=== PATIENT | male | born 1935 | race Caucasian/White ===

== ENCOUNTER 2016-11-08 12:05 | Inpatient (IN) | payer MEDICARE, OTHER ==
[~2016-11-08] VITALS: Ht 165.1 cm; Wt 99.1 kg
--- NOTE | ~2016-11-08 | NDGEN ---
PATIENT'S NAME: EDUARDO BARNES [facility] AGE: 81 Y [address] ROOM: [place] [address] LOCATION: [facility] ADMIT DATE: 11/08/2016 Neurodiagnostics DISCHARGE DATE: FAMILY PHYSICIAN: Topher Hughes MD ATTENDING PHYSICIAN: Leslie Dean PROCEDURE: ELECTROENCEPHALOGRAM DATE OF PROCEDURE: 11/23/2016 TEST: TECH: CLINICAL DIAGNOSIS: DURATION OF EE minutes. REASON FOR EEG: Hemorrhagic stroke. CLINICAL HISTORY: The patient is an 81-year-old male, who has been having some mental status changes after he was noted to have a right-sided intracranial hemorrhage and weakness of the left side. He also has complicated hospital course as he had pulmonary issues. He remains to be confused. EEG FINDINGS: The patient is awake for majority of the EEG. EEG shows the background of 8-9 hertz, which is symmetrical, rhythmical, waxing and waning. Activation procedures included photic stimulation between 3-30 hertz, which did not show any abnormalities. CLASSIFICATION: Normal awake 10/20 scalp electrodes. IMPRESSION: This EEG is mostly within normal limits. No epileptiform discharges or EEG seizures were seen during this recording. MD MONICA SHARMA/randa /[id number] dtt: 12/01/16 GUCCI [place] RAM MOHAN R. dtd: 11/24/16 0204
--- NOTE | ~2016-11-08 | CON ---
PATIENT'S NAME: EDUARDO BARNES [facility] AGE: 81 Y [address] ROOM: [place] [address] LOCATION: [facility] ADMIT DATE: 11/08/2016 Consultation DISCHARGE DATE: FAMILY PHYSICIAN: Topher Hughes MD ATTENDING PHYSICIAN: Leslie Dean REFERRING PHYSICIAN: LOLI KURTZ MD Consult for Dr. Dean. This 81-year-old gentleman is referred for rehab evaluation, GIRP, possible admission and was admitted on 11/08/2016 with left-sided weakness of sudden onset and was unable to get out of his car when he tried to park the car and get to restaurant after jehovah's witness service. He was brought to [facility] by the unit and evaluated. CT scan showed a right-sided intracranial hemorrhage, deemed not a surgical candidate. He has weakness of the left upper and lower extremity with marked slurring and marked weakness of the left facial muscles at the present time, with left- sided visual cut neglect. At the present time, he is with IV line and is also with a Jones catheter. PAST MEDICAL HISTORY: Past history of significance as follows: 1. Atrial fibrillation. 2. Hypertension. 3. Sleep apnea. 4. Benign prostatic hyperplasia. 5. Moderately obese. He is at the present time, alert, fairly well oriented, but unable to show good ability to communicate especially with his inability to wrap his lips to be able to pronounce words secondary to marked weakness of the left side. He has weakness of the left side of the tongue. (He is at the present time with a Dobhoff, which I agree with at risk of aspiration). He is not attending to the left side also. VITAL SIGNS: Blood pressure 119/68, temperature 97.3, pulse 69, respirations 20. He is 5 feet 5 inches tall, and weighs 108.1 kg. He cannot really show any volitional movement on the left side; however, he PATIENT'S NAME: EDUARDO BARNES [facility] AGE: 81 Y [address] ROOM: [place] [address] LOCATION: [facility]U ADMIT DATE: 11/08/2016 Consultation DISCHARGE DATE: FAMILY PHYSICIAN: Topher Hughes MD ATTENDING PHYSICIAN: Leslie Dean Nhan can withdraw very little with the left lower extremity upon pinprick or painful stimulation. He is on the following medications; 1. Lopressor. 2. Catapres. 3. NaCl 0.9%. 4. Apresoline. 5. Atrovent. 6. Zenapax. 7. Prevacid. 8. Norvasc. 9. Cozaar. 10. Sanctura. 11. B and O suppository. 12. Tylenol. 13. Zofran. 14. Morphine sulfate. 15. Deltasone. 16. Dextrose 5%. 17. Zosyn. 18. Citroma. 19. Dulcolax suppository. 20. Prednisone. 21. Lasix. He has been initiated on PT, OT, and speech which I will continue. He needs also to do incentive spirometer, please see the orders. TEDs knee- high with Jonel or PlexiPulses. I feel this gentleman will benefit from intensive rehabilitation of about 4-5 weeks aiming to discharge home on modified independence. We will take him as soon as we have an opening. All the above was explained to him and did discuss with Dr. Dean. I will take him as soon as we have an opening. ELIF COATES MD WMS/modl /[id number] d: 11/18/161830 t: 11/19/16 0823, CONSULTATION REPORT
--- NOTE | ~2016-11-08 | ER ---
PATIENT'S NAME: EDUARDO BARNES [facility] AGE: 81 Y [address] ROOM: [place] [address] LOCATION: [facility] ADMIT DATE: 11/08/2016 ER/Outpatient Report DISCHARGE DATE: FAMILY PHYSICIAN: Topher Hughes MD ATTENDING PHYSICIAN: Leslie Dean TIME OF ARRIVAL: 1203. TIME SEEN: 1203. IDENTIFICATION: 81-year-old male. CHIEF COMPLAINT: Stroke alert. HISTORY OF PRESENT ILLNESS: The patient is an 81-year-old male, who was at [place] with his . He was driving and his looked over and noticed he was not using his left hand. Symptoms of onset approximately 20 minutes prior to arrival. The patient denies headache. He has weakness on his left side. His called 911 and a stroke alert was called from the field. He is on Xarelto and anticoagulated for atrial fibrillation. Again, he denies headache. He does have a history of hypertension and takes losartan for that according to his . PAST MEDICAL HISTORY: ALLERGIES: NO KNOWN DRUG ALLERGIES. CURRENT MEDICATIONS: They do not have a medication list with them, but he is on Xarelto and losartan. MEDICAL PROBLEMS: Coronary artery disease with a bare metal stent in 2009, hypertension, sleep apnea on CPAP at night, BPH, chronic cough, edema of both legs, neuropathy, atrial fibrillation on chronic anticoagulation, arthritis, shortness of breath. PRIOR SURGERIES: Right TKA. PATIENT'S NAME: EDUARDO BARNES [facility] AGE: 81 Y [address] ROOM: [place] [address] LOCATION: [facility] ADMIT DATE: 11/08/2016 ER/Outpatient Report DISCHARGE DATE: FAMILY PHYSICIAN: Topher Hughes MD ATTENDING PHYSICIAN: Leslie Dean SOCIAL HISTORY: Tobacco use, denies. Alcohol use, denies. Drug use, denies. REVIEW OF SYSTEMS: Negative other than what is noted in the HPI from what I could obtain from the patient and his . PHYSICAL EXAMINATION: VITAL SIGNS: Height 5 feet 6 inches, weight 111 kg, blood pressure 205/111, pulse 68, respirations 16, temperature 98.4, and saturations 94% on room air. GENERAL: An 81-year-old male, in obvious distress with left-sided weakness. HEENT: Head: Normocephalic, atraumatic. Ears: TMs not visualized. Eyes: Pupils equal and reactive to light and accommodation. Extraocular movements not intact. He gazes to the right and does not deviate all the way to the left. Conjunctivae clear. Nose: Mucosa pink. No lesions. Mouth: No lesions. Pharynx benign. He does have a facial droop on the left. LUNGS: Clear to auscultation. HEART: Irregularly irregular rhythm. ABDOMEN: Bowel sounds protuberant. Soft, nondistended, nontender. SKIN: [place], warm, and dry. No lesions or rashes noted. NEUROLOGIC: Again, please see the NIH Stroke Scale Score. EXTREMITIES: Trace of edema. No calf tenderness. A stroke alert was called. Stroke consult was obtained per Dr. Ring, tele neurology. DIAGNOSTIC DATA: CT scan was immediately obtained, which showed a 4.4 cm hemorrhagic area in the right basal ganglia per Radiology. EKG atrial fibrillation at 65 beats per minute. No acute ST elevation or depression. Nonspecific ST-T wave changes. Troponin I less than 0.040. Sodium 143, potassium 4.3, chloride 112, CO2 of 21, BUN 16, creatinine 1.2, blood sugar 109, hemoglobin 14.7, hematocrit 43.3, platelets 135. Previous platelet count 142 on February 2010, white blood cell count 4.7 with a normal differential. INR 1.1. Accu-Chek was 106, in the field was 111. IMPRESSION: 1. Acute hemorrhagic stroke. 2. Hypertension. 3. Benign prostatic hypertrophy. 4. Atrial fibrillation, on chronic anticoagulation. PLAN: The patient was seen by tele neurology. Dr. Jenkins was consulted and evaluated the patient in the emergency room. The results were relayed to the PATIENT'S NAME: EDUARDO BARNES [facility] AGE: 81 Y [address] ROOM: [id number] [place], [place] [address] LOCATION: [facility] ADMIT DATE: 11/08/2016 ER/Outpatient Report DISCHARGE DATE: FAMILY PHYSICIAN: Topher Hughes MD ATTENDING PHYSICIAN: Leslie Dean patient and his entire family including , four children, and their spouses. The patient has been stable throughout his stay here in the emergency room. A Jones catheter was placed to straight drain and we will withhold his Xarelto and recommendations at this time are observation and supportive management. The patient and his family understand and agree, and all questions have been answered for the hypertension. He was given 20 mg of hydralazine IV and placed on a Cardene drip per protocol to maintain blood pressures less than 160 systolic. MD NATIVIDAD HONG/randa /[id number] d: 11/08/161940 t: 11/10/16922, OUTPATIENT REPORT
--- NOTE | ~2016-11-08 | CON ---
PATIENT'S NAME: EDUARDO BARNES [facility] AGE: 81 Y [address] ROOM: [place] [address] LOCATION: [facility] ADMIT DATE: 11/08/2016 Consultation DISCHARGE DATE: FAMILY PHYSICIAN: Topher Hughes MD ATTENDING PHYSICIAN: Leslie Dean DATE OF CONSULTATION: 11/09/2016 REFERRING PHYSICIAN: LOLI KURTZ MD CHIEF COMPLAINT: Blood in urine. HISTORY OF PRESENT ILLNESS: The patient is a pleasant 81-year-old male, who is currently admitted and being treated for a right-sided ganglionic hemorrhage. He had initially presented with left-sided weakness and decreased level of consciousness. He underwent a CT scan of his head, which showed a right-sided intracerebral hemorrhage. He does have a history of atrial fibrillation and had been on Xarelto. During this hospitalization, he did have a Jones catheter placed and he did have some gross blood in his urine, which required some intermittent flushing of the catheter, but currently is draining with clear rust tinged colored urine output. He has also been reported to have some bladder spasms with having the catheter in place. On talking with his son, it does sound like the patient has a history of BPH and apparently underwent a procedure in [place] approximately 4 to 5 years ago, which sounds like a transurethral resection of prostate. Son denies any known history with the patient of prostate cancer. He had previously been on Toviaz 4 mg daily leading up to his hospitalization and is not currently on that medication. PAST MEDICAL HISTORY: 1. Atrial fibrillation. 2. Hypertension. 3. Sleep apnea. 4. Benign prostatic hyperplasia. 5. Right-sided intracerebral hemorrhage. PAST SURGICAL HISTORY: 1. Right total knee arthroplasty. 2. Possible transurethral resection of prostate in [place], [place]. FAMILY HISTORY: Noncontributory. No reported family history of genitourinary abnormalities. SOCIAL HISTORY: The patient is . He is a nonsmoker. PATIENT'S NAME: EDUARDO BARNES [facility] AGE: 81 Y [address] ROOM: [place] [address] LOCATION: [facility] ADMIT DATE: 11/08/2016 Consultation DISCHARGE DATE: FAMILY PHYSICIAN: Topher Hughes MD ATTENDING PHYSICIAN: Leslie Dean ALLERGIES: NO REPORTED DRUG ALLERGIES. MEDICATIONS: See hospitalization medication reconciliation. REVIEW OF SYSTEMS: A full 10+ point review of systems was performed with pertinent positive and negative findings included in history of present illness. All other systems were reviewed and are otherwise negative. PHYSICAL EXAMINATION: VITAL SIGNS: Temperature 97.4 Fahrenheit, pulse 71, blood pressure 145/75, respiratory rate 16, and oxygen saturation 93% on 2 L. CONSTITUTIONAL: The patient is in no acute distress. He is somewhat sedated and does not answer questioning. HEENT: Mucous membranes moist. CARDIAC: Good peripheral perfusion. RESPIRATORY: No audible wheezing. ABDOMEN: Soft, nontender, and nondistended. GENITOURINARY: Indwelling Jones catheter draining clear rust tinged colored output with no clots in tubing. It did appear that there was some slight tension on the Jones catheter from his StatLock and I repositioned this, so there was no tension on the Jones catheter after repositioning and replacing a new StatLock for the Jones catheter. His testes are palpably normal. No penile lesions noted. EXTREMITIES: Moves all extremities. HEMATOLOGIC: No active sites of bruising or bleeding. IMPRESSION: 1. History of benign prostatic hyperplasia. 2. Gross hematuria. PLAN: I had a long discussion today with the son regarding my recommendations. I will continue to observe and I do not think at this point that we will need to start any continuous bladder irrigation as his urine output is clearing. I did take some traction off the catheter and this will hopefully help out with him having less bladder spasms from the catheter. We will also get him restarted back on his home regimen of Toviaz 4 mg daily. If okay with the primary team, we will see if we can give him a trial of void next Wednesday by removing the catheter at 6 a.m., November 16, 2016. The family's questions and concerns were addressed, they have no further at this time. PATIENT'S NAME: EDUARDO BARNES [facility] AGE: 81 Y [address] ROOM: [place] [address] LOCATION: [facility] ADMIT DATE: 11/08/2016 Consultation DISCHARGE DATE: FAMILY PHYSICIAN: Topher Hughes MD ATTENDING PHYSICIAN: Leslie Dean MD PEYTON SCANLON/modl /[id number] d: 11/09/16 1759 t: 11/19/16 1112, CONSULTATION REPORT
--- NOTE | ~2016-11-08 | CON ---
PATIENT'S NAME: EDUARDO BARNES [facility] AGE: 81 Y [address] ROOM: [place] [address] LOCATION: [facility]U ADMIT DATE: 11/08/2016 Consultation DISCHARGE DATE: FAMILY PHYSICIAN: Topher Hughes MD ATTENDING PHYSICIAN: Leslie Dean DATE OF CONSULTATION: 11/22/2016 REFERRING PHYSICIAN: LOLI KURTZ MD CONSULTING PHYSICIAN: Richelle Jimenez M.D. REASON FOR CONSULTATION: Possible PEG tube placement. HISTORY OF PRESENT ILLNESS: According to the history of present illness, the patient was admitted on November 08, 2016. He was driving to get some lunch after his adventism service in the morning. As he was driving, his noticed that he was only steering his right hand and was unable to lift his left. They were able to stop. The patient's called 911 and subsequently the patient was brought to the emergency room. He had right-sided intracranial hemorrhage. He has been under the care of Neurosurgery during this period. He had hemorrhagic stroke. His hospital course has been complicated by pulmonary problems. He has continued to remain confused. There was also suspicion of an infectious encephalitis on him. We have been consulted now for PEG placement. It appears that he may be requiring long-term rehab. He has had speech therapy evaluations recently. They were unable to perform any evaluation because he was lethargic. He has also had problems with breathing. These episodes were thought to have an aspiration pneumonia. ALLERGIES: NO KNOWN DRUG ALLERGIES. HOME MEDICATIONS: 1. Toviaz. 2. Xarelto. 3. Cozaar. 4. Toprol. 5. Fish oil. 6. COQ10. 7. Visine drops. 8. Tinactin powder. PATIENT'S NAME: EDUARDO BARNES [facility] AGE: 81 Y [address] ROOM: [place] [address] LOCATION: [facility]PCU ADMIT DATE: 11/08/2016 Consultation DISCHARGE DATE: FAMILY PHYSICIAN: Topher Hughes MD ATTENDING PHYSICIAN: Leslie Dean 9. Biofreeze. PAST MEDICAL AND SURGICAL HISTORY: Include: 1. Bare metal stent in 2009. 2. Hypertension. 3. Sleep apnea, on CPAP at night. 4. BPH. 5. Chronic cough. 6. Edema of lower leg neuropathy. 7. Atrial fibrillation, on chronic anticoagulation. 8. Arthritis. 9. He had a right total knee replacement. REVIEW OF SYSTEMS: The patient is confused and I am unable to obtain any review of system other than what is mentioned in the history of present illness and past medical history. PHYSICAL EXAMINATION: GENERAL: He is responsive, somewhat confused. VITAL SIGNS: Temperature 97.8, his pulse is 74 per minute, respiratory rate 32, his O2 saturation is 95%, blood pressure is 124/72. HEENT: Reveals no pallor and no icterus. CHEST: He has good air entry bilaterally. ABDOMEN: There is a small umbilical hernia. I do not see any scars. NEUROLOGIC: Limited exam. He does have significant weakness on the left side. MUSCULOSKELETAL: I do not see any obvious injuries or deformities. IMAGING DATA: Chest x-ray done on the shows cardiac silhouette that remains enlarged, blunting of the left costophrenic angle, small pleural effusion. Dobhoff tube in place. LABORATORY DATA: CBC done on 11/21 showed WBC 13.8, hemoglobin 14.2, hematocrit 42.6, platelet count is 153. His sodium is 140, potassium 4.9, chloride is 108, bicarb is 23, BUN is 49, creatinine 1.2. Prolactin level is normal at 14.1. IMPRESSION: The patient with a history of intracranial bleeding and now having poor oral intake. He appears to be a suitable candidate for PEG placement. I have discussed this with his over the phone. She is not convinced at this time. She feels I granddaughter who is a speech therapist was able to feed PATIENT'S NAME: EDUARDO BARNES [facility] AGE: 81 Y [address] ROOM: [place] [address] [facility] ADMIT DATE: 11/08/2016 Consultation DISCHARGE DATE: FAMILY PHYSICIAN: Topher Hughes MD ATTENDING PHYSICIAN: Leslie Dean somewhat. She wants to hold off on the PEG at this time. She will think about it and let us know. I did explain to her the procedure of PEG placement. All risks, including benefits, and alternatives explained. The risk of anesthesia as well as the damage to internal organs were explained. Informed consent will be obtained if she agrees. Thank you once again for the courtesy of this consultation. MD DMITRY PENA/randa /[id number] d: 11/22/16 1136 t: 11/23/16 1816, CONSULTATION REPORT
--- NOTE | ~2016-11-08 | ECHO ---
Transthoracic Echocardiography Report (TTE) Demographics Patient Name EDUARDO BARNES Date of Study 11/10/2016 R Patient Number [id number] Visit Number [id number] Date of 1935 Room Number G6224 Gender Male Number Age 81 year(s) Referring Jaylan Rose Jumpbasting Lining Baster Emmie Rivera Physician [facility] Physician Interpreting Billy Machado Technical Documentation Specialist Physician Supervising Ordering MD/MLP Physician Nurse Stress Cafe Operator Conclusions Contractility Score Summary Normal Left Ventricular contractility was noted. Summary The estimated left ventricular ejection fraction is 60-65%. Moderate concentric left ventricular hypertrophy. Diastolic function indeterminate due to patient's arrhythmia. Mildly dilated right ventricle. Normal RV systolic function. The left atrium is mildly dilated by LA volume index measurement. Mild mitral regurgitation by color Doppler. There is mild pulmonary hypertension. The pulmonary pressure (RVSP) is 45 mmHg. Small pericardial effusion, predominantly posterior. There is no echocardiographic evidence of cardiac tamponade. Procedure Type of Study TTE procedure:2D Echocardiogram. Procedure Date Date: 11/10/2016 Start: 02:11 PM Study Location: Inpatient Portable Indications:Paroxysmal a-fib. Appropriate Use Criteria: 9 Patient Status: Routine HR: 69 bpm BP: 165/NaN mmHg M-Mode/2D Measurements LV Diastolic Dimension: 4.65 cm LV Systolic Dimension: 3.11 cm LV Septum Diastolic: 1.65 cm LV PW Diastolic: 1.65 cm AO Root Dimension: 2.3 cm Cardiac Output: 4.2 l/min AV Cusp Separation: 1.5 cm RV Diastolic Dimension: 3.44 cm LA volume: 57 ml LVOT: 2 cm RV Base: 3.62 cm LVOT VTI: 19.4 cm RV Mid: 2.67 cm LV Stroke volume: 60.92 ml TAPSE: 2.36 cm TDI-S': 15.8 cm/s Doppler Measurements AV Peak Velocity: 1.57 m/s MV Peak E-Wave: 1.44 m/s AV Peak Gradient: 9.86 mmHg AV Mean Gradient: 5 mmHg MV P1/2t: 42 msec LVOT Peak Velocity: 0.92 m/s TR Velocity:2.95 m/s PV Peak Velocity: 1.36 m/s TR Gradient:34.81 mmHg PV Peak Gradient: 7.4 mmHg Estimated RAP:10 mmHg Estimated PASP: 44.81 mmHg Estimated RVSP: 45 mmHg A' Lateral Velocity: 0.07 m/s E' Lateral Velocity: 0.14 m/s Findings Left Ventricle Moderate concentric left ventricular hypertrophy. Diastolic function indeterminate due to patient's arrhythmia. Right Ventricle Mildly dilated right ventricle. Left Atrium The left atrium is mildly dilated by LA volume index measurement. The left atrium is mildly dilated. Right Atrium Normal right atrial size. Dilated IVC with poor inspiratory collapse consistent with elevated RA pressure. IVC measures 2.8 cm. Mitral Valve Mild mitral regurgitation by color Doppler. Mild to moderate mitral annular calcification. Aortic Valve The aortic valve is mildly sclerotic. Tricuspid Valve Mild tricuspid regurgitation by color Doppler. There is mild to moderate pulmonary hypertension. The pulmonary pressure (RVSP) is 45 mmHg. Pulmonic Valve PV appears grossly normal. Pericardial Effusion Small pericardial effusion, predominantly posterior. There is no echocardiographic evidence of cardiac tamponade. Contractility Score LV regional wall motion:(0-Non visualized 1-Normal 2-Hypokinesis 3-Akinesis 4-Dyskinesis 5-Aneurysm) Signature dtt: KARY HARTMANN dtd: 11/10/16 1411 Physician Self Edit
--- NOTE | ~2016-11-08 | HP ---
PATIENT'S NAME: EDUARDO [facility] AGE: 81 Y [address] ROOM: [place] [address] LOCATION: [facility] ADMIT DATE: 11/08/2016 History & Physical DISCHARGE DATE: FAMILY PHYSICIAN: Topher Hughes MD ATTENDING PHYSICIAN: Leslie Wood DATE OF SERVICE: 11/08/2016 CONSULT REQUESTED BY: Dr. Shantal Mena, ER physician. REASON FOR CONSULTATION: Intracerebral hemorrhage. PATIENT IDENTIFICATION: Eduardo Rose is an 81-year-old male. PRESENTING COMPLAINTS: Left-sided weakness and decreased level of consciousness. HISTORY OF PRESENT ILLNESS: The patient was driving to get some lunch after [employer] service this morning. As he tried to turn into the parking lot of the restaurant, his noticed that he was only steering with his right hand and was unable to lift his left hand up to the steering wheel. Fortunately, there were no vehicles around him and he somehow was able to park the car. He was unable to get out of the car after it was parked. The patient's called 911 and the patient was brought to the ER at [facility] for evaluation and treatment, arriving approximately 20 minutes after the onset of his symptoms. Here at [facility], a head CT was performed and it showed a right-sided intracerebral hemorrhage. I was therefore consulted to come and see the patient. PAST MEDICAL HISTORY: Significant for atrial fibrillation and elevated blood pressure. The patient also has a history of sleep apnea and benign prostatic hyperplasia. CURRENT MEDICATIONS: 1. Losartan. 2. Xarelto. ALLERGIES: PLEASE SEE CHART. FAMILY HISTORY: PATIENT'S NAME: ED[facility]ARDO [facility] AGE: 81 Y [address] ROOM: [place] [address] LOCATION: [facility] ADMIT DATE: 11/08/2016 History & Physical DISCHARGE DATE: FAMILY PHYSICIAN: Topher Hughes MD ATTENDING PHYSICIAN: Leslie Wood No family history relevant to present problems. SOCIAL HISTORY: The patient is . He is a nonsmoker. REVIEW OF SYSTEMS: A 10-point review of systems was conducted. The only abnormal finding is as discussed in the history of present illness. PHYSICAL EXAMINATION: GENERAL: The patient was seen in the ER. He was awake and able to follow commands. VITAL SIGNS: Blood pressure in the ER was 205/111 with a pulse rate of 68. NEUROLOGIC: The patient is drowsy, but arousable. He follows commands. Cranial Nerves: The patient has a mild right facial droop. His eyes are deviated to the right side and cannot move over the midline to the left side. Motor Examination: The patient has left-sided weakness. He is able to shrug his shoulders, but really has no movement in his hands or in his legs. Gait: Not tested. CARDIOVASCULAR SYSTEM: Heart sounds are present. RESPIRATORY SYSTEM: The patient is not short of breath at bedside. EXTREMITIES: No cyanosis or clubbing. SKIN: No skin rashes or skin masses. HEAD: His head is atraumatic. EYES AND EARS: No evidence of trauma. REVIEW OF IMAGING STUDIES: The patient has had a head CT scan done. The CT scan shows a right basal ganglionic hemorrhage with slight extension into the ventricle. There is no mass effect or midline shift. LABORATORY INVESTIGATIONS: Hemoglobin is 14.7 and white count is 4.7. Electrolytes: Sodium is 143, potassium 4.3, BUN 16, and creatinine 1.2. ASSESSMENT: This is an 81-year-old male with sudden onset of left-sided weakness and decreased responsiveness. Imaging studies show a 4 cm right basal ganglionic hemorrhage. MEDICAL DECISION MAKING: The patient is being admitted to the hospital for observation. His blood pressure will be controlled. There is some blood in his ventricles, but it is not large enough to require a PATIENT'S NAME: ED[facility]ARDO [facility] AGE: 81 Y [address] ROOM: [id number] [place] [id number] LOCATION: [facility] ADMIT DATE: 11/08/2016 History & Physical DISCHARGE DATE: FAMILY PHYSICIAN: Topher Hughes MD ATTENDING PHYSICIAN: Leslie Wood ventriculostomy at this time. We will repeat his CT scan in the next day or 2. LESLIE WOOD MD CNO/randa /[id number] CC: Topher Hughes MD D: [id number] T: [id number] HISTORY & PHYSICAL
--- NOTE | ~2016-11-08 | CON ---
PATIENT'S NAME: EDUARDO BARNES [facility] AGE: 81 Y [address] ROOM: [place] [address] LOCATION: [facility] ADMIT DATE: 11/08/2016 Consultation DISCHARGE DATE: FAMILY PHYSICIAN: Topher Hughes MD ATTENDING PHYSICIAN: Leslie Dean DATE OF CONSULTATION: 11/08/2016 REFERRING PHYSICIAN: Leslie Dean MD CONSULTING PHYSICIAN: Vini Esposito M.D. REASON FOR CONSULTATION: Medical management. HISTORY OF PRESENT ILLNESS: The patient is an 81-year-old male with past medical history of atrial fibrillation, on Xarelto, who was admitted to the hospital under code stroke protocol early today. He was subsequently found to have a large right-sided thalamic intracerebral hemorrhage with extension into the ventricle. The patient has been seen by Dr. Dean and at this point he has been admitted for observation and serial CAT scans. At this point, the patient is quite nonverbal, disorganized, and volunteers no complaints. REVIEW OF SYSTEMS: Cannot be obtained due to encephalopathy. PAST MEDICAL HISTORY: Obtained from the spouse is atrial fibrillation; obstructive sleep apnea; and coronary artery disease, status post stenting. PAST SURGICAL HISTORY: Significant for recent total knee arthroplasty. CURRENT MEDICATIONS: 1. Xarelto. 2. Visine drops. 3. Tolnaftate. 4. CoQ10. 5. Toviaz. 6. Losartan. 7. Metoprolol. 8. Rudyard-3. PATIENT'S NAME: EDUARDO BARNES [facility] AGE: 81 Y [address] ROOM: [place] [address] LOCATION: [facility] ADMIT DATE: 11/08/2016 Consultation DISCHARGE DATE: FAMILY PHYSICIAN: Topher Hughes MD ATTENDING PHYSICIAN: Leslie Dean SOCIAL HISTORY: Negative for any history of ongoing toxic habits. FAMILY HISTORY: Reviewed and noncontributory due to advanced age and known underlying etiology for his presentation. PHYSICAL EXAMINATION: VITAL SIGNS: Blood pressure is 140/77, heart rate is in the 80s, saturating 96% on room air, respirations 18, and he is afebrile. GENERAL: Appears morbidly obese, elderly male, quite disorganized, and uncomfortable. NEUROLOGIC: Significant for right gaze deviation. There is left-sided hemiparesis. EYES: Shows pupils are equal and reactive to light. LYMPHATIC: Shows no cervical lymphadenopathy. ENDOCRINE: Shows no thyromegaly. LUNGS: Clear to auscultation bilaterally. HEART: Heart rate is irregular with no appreciable murmurs, gallops, or rubs. GI: Abdomen is soft, nontender, and nondistended. Normoactive bowel sounds. VASCULAR: Reveals 2+ pedal pulses. MUSCULOSKELETAL: Shows no muscle or joint abnormalities. SKIN: Warm and dry. PSYCHIATRIC: Cannot be assessed. LABORATORY DATA: Studies performed in the ER are significant for a CAT scan showing acute hemorrhage of the right basal ganglia measuring up to 4.4 cm with intraventricular extension as well as mild dilatation of the right ventricle, which may represent developing hydrocephalus. Lab results have been reviewed and significant for platelet count of 135. INR is 1.1. Urinalysis is unremarkable. IMPRESSION AND RECOMMENDATIONS: 1. This is an 81-year-old male with a serious intraventricular hemorrhage. I have discussed the case with Dr. Dean and recommended that we attempt Kcentra. Kcentra is an option for treatment of intracerebral hemorrhage as per guidelines from the Neu[employer], which are recent. As such, we will order him Kcentra. We will also maintain his blood pressure with a systolic goal of under 130 with Cardene drip that has already been ordered in the ER. 2. Atrial fibrillation. We will monitor his rhythm and convert his oral metoprolol to IV as he is unable to take anything p.o. right now. 3. Obstructive sleep apnea. We will monitor. We will attempt to put him on PATIENT'S NAME: EDUARDO BARNES [facility] AGE: 81 Y [address] ROOM: [place] [address] LOCATION: [facility] ADMIT DATE: 11/08/2016 Consultation DISCHARGE DATE: FAMILY PHYSICIAN: Topher Hughes MD ATTENDING PHYSICIAN: Leslie Dean CPAP, though I doubt he will be able to tolerate it in his present state. 4. Goals of care. Discussed goals of care with his spouse and given the seriousness of his bleed, she requested the patient be made a DNR. I agree with this decision, but we also agreed that a trial of intubation would be reasonable. Thank you for allowing us to participate in the care of this gentleman. We will follow the patient with you. Time dedicated to this patient's encounter is 35 minutes. MD KENIA ZAMARRIPA/randa /[id number] d: 11/08/166 t: 11/16/16 1814, CONSULTATION REPORT
--- NOTE | ~2016-11-08 | DS ---
PATIENT'S NAME: EDUARDO BARNES [facility] AGE: 81 Y [address] ROOM: [address] [place] [address] LOCATION: [facility] ADMIT DATE: 11/08/2016 Discharge Summary DISCHARGE DATE: 12/03/2016 FAMILY PHYSICIAN: Topher Hughes MD ATTENDING PHYSICIAN: Leslie Dean Admitted on 11/08/2016 and transferred to [facility] on 12/03/2016. REASON FOR ADMISSION: The patient is an 81-year-old male who presented with left-sided weakness and decreased level of consciousness. Imaging studies showed a right basal ganglionic hemorrhage with slight extension into the ventricle. There was no mass effect or midline shift. The hemorrhage was felt to be likely as a result of elevated blood pressure. TREATMENT RENDERED: The patient was admitted to hospital for close observation. The hospitalists were consulted to assist with his care. He also was seen by Pulmonology for breathing problems. The patient gradually improved and by the 12/03/2016, he was well enough for transfer to [facility]. He also had a PEG tube placed to help with nutrition as he was not really able to swallow well enough or eat enough amount to maintain adequate nutrition. A number of head CT scans were done and there was no worsening of the patient's hemorrhage if anything, it did show improvement. The patient continued to progress and was ultimately ready for transfer on 12/03/2016. He was transferred to [facility] for further treatment to the long-term acute care service. The plan is for followup with Neurosurgery when he is released from [facility]. FINAL DIAGNOSIS: Right basal ganglionic hemorrhage likely as a result of elevated blood pressure. LESLIE DEAN MD CNO/modl /[id number] d: 12/14/16832 t: 12/16/162150, DISCHARGE SUMMARY
--- NOTE | ~2016-11-08 | CON ---
PATIENT'S NAME: EDUARDO BARNES [facility] AGE: 81 Y [address] ROOM: [place] [address] LOCATION: [facility] ADMIT DATE: 11/08/2016 Consultation DISCHARGE DATE: FAMILY PHYSICIAN: Topher Hughes MD ATTENDING PHYSICIAN: Leslie Dean REFERRING PHYSICIAN: LOLI KURTZ MD REFERRING PHYSICIAN: Dr. Dean. REASON FOR REFERRAL: Hypoxemia. HISTORY OF PRESENT ILLNESS: The patient is an 81-year-old gentleman with a hemorrhagic stroke. He has no prior history of lung disease but does have obstructive sleep apnea. He had a bronchitis acutely about 2 to 3 weeks ago, and his says he had a persistent coughing after that. He suffered a stroke and was admitted here on 11/08/2016. For the last couple of days, he has increased respiratory issues with tachypnea, increased O2 requirements, and chest congestion. PAST MEDICAL HISTORY: Please refer to the admission history and physical exam. He is unable to give any meaningful information. PHYSICAL EXAMINATION: GENERAL: In bed, agitated, awake, but not really interactive as his CPAP mask in place. ENT: Unremarkable. NECK: Normal. CHEST: Expiratory rhonchi. HEART: Distant, regular. ABDOMEN: Obese. EXTREMITIES: Mild edema. ASSESSMENT: Respiratory compromise with multiple factors at play. His chest x-ray looks like he has pulmonary edema; he sounds like he still has a fair amount of airway inflammation from his bronchitis; he is not clearing his secretions effectively due to mental status changes from his stroke. PLAN: We will add corticosteroids to see if we can improve his airway inflammation. I would like to diurese him a little bit further. I would like to keep head of his bed elevated and use CPAP when he is asleep, oxygen when he is awake. We will follow with you. PATIENT'S NAME: EDUARDO BARNES [facility] AGE: 81 Y [address] ROOM: [place] [address] LOCATION: [facility] ADMIT DATE: 11/08/2016 Consultation DISCHARGE DATE: FAMILY PHYSICIAN: Topher Hughes MD ATTENDING PHYSICIAN: Leslie Dean MD KENYA HANNA/randa /[id number] d: 11/13/16 0027 t: 11/13/16 1303, CONSULTATION REPORT
[2016-11-08 12:17] LABS: BASOPHIL % 0.4 %; EOSINOPHIL # 0.1 K/uL (0.0-0.5); EOSINOPHIL % 2.2 %; HEMATOCRIT 43.3 % (33.0-50.0); HEMOGLOBIN 14.7 g/dL (11.0-16.0); IMMATURE GRANULOCYTE % 0.4 %; LYMPHOCYTE # 1.3 K/uL (0.8-4.0); LYMPHOCYTE % 27.1 %; MCH 31.8 pg (27.0-34.0); MCHC 33.9 gm/dL (32.0-36.5); MCV 93.7 fl (83.0-98.0); MONOCYTE # 0.6 K/uL (0.0-1.0); MONOCYTE % 13.8 %; MPV 9.3 fl (9.4-12.4); NEUTROPHIL # (ANC) 2.6 K/uL (1.4-9.0); NEUTROPHIL % 56.1 %; NRBC % 0 /100WBC (0-0.00); PLATELET COUNT 135 K/uL (150-450); RDW-CV 13.8 % (11.9-14.6); WBC 4.7 K/uL (4.0-11.0)
[2016-11-08 12:18] LABS: RBC 4.62 M/uL (3.50-5.50)
[2016-11-08 12:26] LABS: INR - (THERAPEUTIC) 1.1 (0.9-1.1); PROTIME 12.1 SECONDS (9.6-11.1); PTT 33 SECONDS (25-32)
[2016-11-08 12:33] LABS: ALBUMIN 3.4 gm/dL (3.5-5.0); ANION GAP 14.3 (10.0-19.0); CALCIUM 8.3 mg/dL (8.5-10.5); CREATININE 1.2 mg/dL (0.6-1.3); PHOSPHORUS 2.6 mg/dL (2.5-4.9); POTASSIUM 4.3 mMol/L (3.7-5.1)
[2016-11-08 13:42] LABS: BILIRUBIN URINE NEGATIVE (NEGATIVE); BLOOD URINE 250 /UL (NEGATIVE); COLOR URINE AMBER (YELLOW); GLUCOSE URINE NEGATIVE (NEGATIVE); KETONE URINE NEGATIVE (NEGATIVE); LEUKOCYTES URINE NEGATIVE /UL (NEGATIVE); NITRITE URINE NEGATIVE (NEGATIVE); PROTEIN URINE 30 mg/dL (NEGATIVE); TURBIDITY URINE 2+ (CLEAR); UROBILINOGEN URINE NORMAL (NORMAL)
[2016-11-08 13:48] LABS: RBC URINE PACKED FIELD #/HPF (NEGATIVE); WBC URINE 0-2 #/HPF (NEGATIVE)
[2016-11-08 13:49] LABS: BACTERIA URINE NEGATIVE (NEGATIVE); EPITHELIAL URINE NEGATIVE #/HPF (NEGATIVE)
[2016-11-08] MEDS ORDERED: TOVIAZ4 MG PO (16:28)
[2016-11-08] MEDS ORDERED: TOPROL XL25 MG PO (16:29)
[2016-11-08] MEDS ORDERED: COZAAR100 MG PO (16:29)
[2016-11-08] MEDS ORDERED: XARELTO20 MG PO (16:29)
[2016-11-08] MEDS ORDERED: FISH OIL 1,2001 EAC3 PO (16:30)
[2016-11-08] MEDS ORDERED: COQ-10100 MG PO (16:30)
[2016-11-08] MEDS ORDERED: VISINE DPS)(GEN15 ML OPHTH (16:31)
[2016-11-08] MEDS ORDERED: BIOFREEZE89 ML TOP (16:32)
[2016-11-08] MEDS ORDERED: TINACTIN TOP (16:32)
[2016-11-09 05:23] LABS: HEMATOCRIT 40.6 % (33.0-50.0); HEMOGLOBIN 13.7 g/dL (11.0-16.0); MCH 32.2 pg (27.0-34.0); MCHC 33.7 gm/dL (32.0-36.5); MCV 95.5 fl (83.0-98.0); MPV 9.4 fl (9.4-12.4); RBC 4.25 M/uL (3.50-5.50); WBC 7.6 K/uL (4.0-11.0)
[2016-11-10 04:49] LABS: ANION GAP 14.9 (10.0-19.0); CREATININE 1.2 mg/dL (0.6-1.3); MAGNESIUM 1.7 mg/dL (1.3-2.6); POTASSIUM 3.9 mMol/L (3.7-5.1)
[2016-11-10 04:53] LABS: CALCIUM 7.4 mg/dL (8.5-10.5)
[2016-11-10 06:50] LABS: CPK 488 IU/L (35-332)
[2016-11-10 17:06] LABS: BICARBONATE 22.1 mmol/L (18.0-23.0); PCO2 29 mmHg (35-45); PO2 55 mmHg (80-90)
[2016-11-11 04:37] LABS: ANION GAP 12.3 (10.0-19.0); BLOOD UREA NITROGEN 27 mg/dL (6-24); CALCIUM 7.8 mg/dL (8.5-10.5); CHLORIDE 112 mMol/L (96-110); CO2 23 mMol/L (22-32); CREATININE 1.1 mg/dL (0.6-1.3); ESTIMATED GFR (MDRD EQUATION) > 60; POTASSIUM 3.3 mMol/L (3.7-5.1); SODIUM 144 mMol/L (135-145)
[2016-11-12 04:06] LABS: BASOPHIL % 0.2 %; EOSINOPHIL % 0.2 %; HEMATOCRIT 41.1 % (33.0-50.0); HEMOGLOBIN 13.8 g/dL (11.0-16.0); IMMATURE GRANULOCYTE # 0.1 K/uL (0.0-0.3); IMMATURE GRANULOCYTE % 1.5 %; LYMPHOCYTE # 0.7 K/uL (0.8-4.0); LYMPHOCYTE % 8.6 %; MCHC 33.6 gm/dL (32.0-36.5); MCV 95.4 fl (83.0-98.0); MONOCYTE # 0.8 K/uL (0.0-1.0); MONOCYTE % 8.9 %; MPV 9.6 fl (9.4-12.4); NEUTROPHIL # (ANC) 6.8 K/uL (1.4-9.0); NEUTROPHIL % 80.6 %; NRBC % 0 /100WBC (0-0.00); PLATELET COUNT 156 K/uL (150-450); RBC 4.31 M/uL (3.50-5.50); RDW-CV 13.8 % (11.9-14.6); WBC 8.5 K/uL (4.0-11.0)
[2016-11-12 04:19] LABS: ANION GAP 11.9 (10.0-19.0); BLOOD UREA NITROGEN 30 mg/dL (6-24); CALCIUM 8.1 mg/dL (8.5-10.5); CHLORIDE 114 mMol/L (96-110); CO2 24 mMol/L (22-32); CREATININE 1.1 mg/dL (0.6-1.3); ESTIMATED GFR (MDRD EQUATION) > 60; POTASSIUM 3.9 mMol/L (3.7-5.1)
[2016-11-12 04:23] LABS: SODIUM 146 mMol/L (135-145)
[2016-11-14 05:04] LABS: HEMATOCRIT 42.9 % (33.0-50.0); HEMOGLOBIN 14.5 g/dL (11.0-16.0); MCH 32.4 pg (27.0-34.0); MCHC 33.8 gm/dL (32.0-36.5); MPV 9.7 fl (9.4-12.4); PLATELET COUNT 171 K/uL (150-450); RBC 4.47 M/uL (3.50-5.50); RDW-CV 13.5 % (11.9-14.6); WBC 8.5 K/uL (4.0-11.0)
[2016-11-14 05:18] LABS: CALCIUM 8.4 mg/dL (8.5-10.5); CREATININE 1.4 mg/dL (0.6-1.3); POTASSIUM 3.3 mMol/L (3.7-5.1)
[2016-11-14 05:19] LABS: ANION GAP 14.3 (10.0-19.0); MAGNESIUM 2.7 mg/dL (1.3-2.6)
[2016-11-14 05:36] LABS: ABSOLUTE NEUTROPHIL CT (ANC) 7.9 K/uL (1.4-9.0); BANDED NEUTROPHIL # 0.9 K/uL (0.0-0.1); BANDED NEUTROPHILS % 10 %; LYMPHOCYTE # 0.3 K/uL (0.8-4.0); LYMPHOCYTE % 4 %; MONOCYTE # 0.3 K/uL (0.0-1.0); SEGMENTED NEUTROPHIL # 7.1 K/uL (1.4-9.0); SEGMENTED NEUTROPHIL % 83 %
[2016-11-15 05:14] LABS: CALCIUM 8.3 mg/dL (8.5-10.5); CREATININE 1.3 mg/dL (0.6-1.3); POTASSIUM 3.7 mMol/L (3.7-5.1)
[2016-11-15 05:16] LABS: ANION GAP 14.7 (10.0-19.0); MAGNESIUM 2.8 mg/dL (1.3-2.6)
[2016-11-16 04:57] LABS: CALCIUM 8.2 mg/dL (8.5-10.5); CREATININE 1.3 mg/dL (0.6-1.3); MAGNESIUM 2.9 mg/dL (1.3-2.6)
[2016-11-18 04:17] LABS: BASOPHIL # 0.1 K/uL (0.0-0.2); BASOPHIL % 0.6 %; EOSINOPHIL % 0.3 %; HEMATOCRIT 44.7 % (33.0-50.0); HEMOGLOBIN 15.2 g/dL (11.0-16.0); IMMATURE GRANULOCYTE # 0.6 K/uL (0.0-0.3); IMMATURE GRANULOCYTE % 4.8 %; LYMPHOCYTE # 1.5 K/uL (0.8-4.0); LYMPHOCYTE % 11.8 %; MCH 31.9 pg (27.0-34.0); MCV 93.9 fl (83.0-98.0); MONOCYTE # 1.1 K/uL (0.0-1.0); MONOCYTE % 8.6 %; MPV 9.8 fl (9.4-12.4); NEUTROPHIL # (ANC) 9.7 K/uL (1.4-9.0); NEUTROPHIL % 73.9 %; NRBC % 0 /100WBC (0-0.00); PLATELET COUNT 186 K/uL (150-450); RBC 4.76 M/uL (3.50-5.50); RDW-CV 12.7 % (11.9-14.6); WBC 13.1 K/uL (4.0-11.0)
[2016-11-18 04:30] LABS: ANION GAP 15.6 (10.0-19.0); CALCIUM 8.2 mg/dL (8.5-10.5); CREATININE 1.2 mg/dL (0.6-1.3); POTASSIUM 4.6 mMol/L (3.7-5.1)
[2016-11-19 11:14] LABS: HEMATOCRIT 46.4 % (33.0-50.0); HEMOGLOBIN 15.5 g/dL (11.0-16.0); MCH 31.8 pg (27.0-34.0); MCHC 33.4 gm/dL (32.0-36.5); MCV 95.1 fl (83.0-98.0); MPV 10.3 fl (9.4-12.4); PLATELET COUNT 188 K/uL (150-450); RBC 4.88 M/uL (3.50-5.50)
[2016-11-19 11:18] LABS: WBC 18.7 K/uL (4.0-11.0)
[2016-11-19 11:30] LABS: ALBUMIN 2.5 gm/dL (3.5-5.0); ANION GAP 16.3 (10.0-19.0); CALCIUM 8.3 mg/dL (8.5-10.5); CREATININE 1.4 mg/dL (0.6-1.3); PHOSPHORUS 4.5 mg/dL (2.5-4.9); POTASSIUM 5.3 mMol/L (3.7-5.1)
[2016-11-19 11:36] LABS: MAGNESIUM 2.7 mg/dL (1.3-2.6)
[2016-11-19 12:16] LABS: ABSOLUTE NEUTROPHIL CT (ANC) 17.2 K/uL (1.4-9.0); BANDED NEUTROPHIL # 0.2 K/uL (0.0-0.1); BANDED NEUTROPHILS % 1 %; LYMPHOCYTE # 1.1 K/uL (0.8-4.0); LYMPHOCYTE % 6 %; MONOCYTE # 0.2 K/uL (0.0-1.0); SEGMENTED NEUTROPHIL % 91 %
[2016-11-21 03:41] LABS: HEMATOCRIT 42.6 % (33.0-50.0); HEMOGLOBIN 14.2 g/dL (11.0-16.0); MCH 32.3 pg (27.0-34.0); MCHC 33.3 gm/dL (32.0-36.5); MCV 96.8 fl (83.0-98.0); MPV 10.2 fl (9.4-12.4); PLATELET COUNT 153 K/uL (150-450); RDW-CV 13.1 % (11.9-14.6); WBC 13.8 K/uL (4.0-11.0)
[2016-11-21 03:58] LABS: ALBUMIN 2.7 gm/dL (3.5-5.0); ANION GAP 13.9 (10.0-19.0); CALCIUM 8.1 mg/dL (8.5-10.5); CREATININE 1.2 mg/dL (0.6-1.3); MAGNESIUM 2.5 mg/dL (1.3-2.6); PHOSPHORUS 3.7 mg/dL (2.5-4.9); POTASSIUM 4.9 mMol/L (3.7-5.1)
[2016-11-21 05:22] LABS: ABSOLUTE NEUTROPHIL CT (ANC) 11.7 K/uL (1.4-9.0); LYMPHOCYTE # 0.8 K/uL (0.8-4.0); LYMPHOCYTE % 6 %; MONOCYTE # 0.8 K/uL (0.0-1.0); SEGMENTED NEUTROPHIL # 11.7 K/uL (1.4-9.0); SEGMENTED NEUTROPHIL % 85 %
[2016-11-23 04:33] LABS: BASOPHIL % 0.3 %; EOSINOPHIL # 0.3 K/uL (0.0-0.5); EOSINOPHIL % 2.5 %; HEMOGLOBIN 13.9 g/dL (11.0-16.0); IMMATURE GRANULOCYTE # 0.5 K/uL (0.0-0.3); IMMATURE GRANULOCYTE % 4.4 %; LYMPHOCYTE # 1.1 K/uL (0.8-4.0); LYMPHOCYTE % 10.8 %; MCH 32.3 pg (27.0-34.0); MCHC 33.1 gm/dL (32.0-36.5); MCV 97.7 fl (83.0-98.0); MONOCYTE # 0.9 K/uL (0.0-1.0); MONOCYTE % 8.3 %; MPV 10.5 fl (9.4-12.4); NEUTROPHIL # (ANC) 7.8 K/uL (1.4-9.0); NEUTROPHIL % 73.7 %; NRBC % 0 /100WBC (0-0.00); PLATELET COUNT 151 K/uL (150-450); RDW-CV 13.3 % (11.9-14.6); WBC 10.6 K/uL (4.0-11.0)
[2016-11-23 04:51] LABS: ALBUMIN 2.6 gm/dL (3.5-5.0); ANION GAP 12.8 (10.0-19.0); CALCIUM 8.1 mg/dL (8.5-10.5); CREATININE 1.3 mg/dL (0.6-1.3); PHOSPHORUS 4.1 mg/dL (2.5-4.9); POTASSIUM 4.8 mMol/L (3.7-5.1)
[2016-11-26 04:25] LABS: BASOPHIL % 0.3 %; EOSINOPHIL # 0.2 K/uL (0.0-0.5); EOSINOPHIL % 2.2 %; HEMATOCRIT 43.1 % (33.0-50.0); HEMOGLOBIN 13.9 g/dL (11.0-16.0); IMMATURE GRANULOCYTE # 0.2 K/uL (0.0-0.3); IMMATURE GRANULOCYTE % 2.1 %; LYMPHOCYTE # 1.2 K/uL (0.8-4.0); LYMPHOCYTE % 13.8 %; MCH 31.4 pg (27.0-34.0); MCHC 32.3 gm/dL (32.0-36.5); MCV 97.5 fl (83.0-98.0); MONOCYTE # 0.7 K/uL (0.0-1.0); MONOCYTE % 8.1 %; MPV 10.1 fl (9.4-12.4); NEUTROPHIL # (ANC) 6.6 K/uL (1.4-9.0); NEUTROPHIL % 73.5 %; NRBC % 0 /100WBC (0-0.00); PLATELET COUNT 165 K/uL (150-450); RBC 4.42 M/uL (3.50-5.50); RDW-CV 13.3 % (11.9-14.6)
[2016-11-26 04:43] LABS: ALBUMIN 2.7 gm/dL (3.5-5.0); ANION GAP 12.1 (10.0-19.0); BLOOD UREA NITROGEN 23 mg/dL (6-24); CALCIUM 8.4 mg/dL (8.5-10.5); CHLORIDE 108 mMol/L (96-110); CO2 25 mMol/L (22-32); ESTIMATED GFR (MDRD EQUATION) > 60; MAGNESIUM 2.2 mg/dL (1.3-2.6); PHOSPHORUS 2.2 mg/dL (2.5-4.9); POTASSIUM 4.1 mMol/L (3.7-5.1); SODIUM 141 mMol/L (135-145)
[2016-11-30 04:49] LABS: BASOPHIL % 0.3 %; EOSINOPHIL # 0.1 K/uL (0.0-0.5); EOSINOPHIL % 1.2 %; HEMATOCRIT 43.2 % (33.0-50.0); HEMOGLOBIN 14.6 g/dL (11.0-16.0); IMMATURE GRANULOCYTE # 0.1 K/uL (0.0-0.3); LYMPHOCYTE # 1.3 K/uL (0.8-4.0); LYMPHOCYTE % 12.9 %; MCHC 33.8 gm/dL (32.0-36.5); MCV 94.7 fl (83.0-98.0); MONOCYTE # 0.8 K/uL (0.0-1.0); MONOCYTE % 7.6 %; MPV 9.7 fl (9.4-12.4); NEUTROPHIL # (ANC) 7.6 K/uL (1.4-9.0); NRBC % 0 /100WBC (0-0.00); PLATELET COUNT 171 K/uL (150-450); RBC 4.56 M/uL (3.50-5.50); RDW-CV 13.1 % (11.9-14.6); WBC 9.9 K/uL (4.0-11.0)
[2016-11-30 05:03] LABS: ANION GAP 14.3 (10.0-19.0); BLOOD UREA NITROGEN 26 mg/dL (6-24); CHLORIDE 106 mMol/L (96-110); CO2 24 mMol/L (22-32); CREATININE 0.9 mg/dL (0.6-1.3); ESTIMATED GFR (MDRD EQUATION) > 60; POTASSIUM 4.3 mMol/L (3.7-5.1); SODIUM 140 mMol/L (135-145)
[2016-12-03 04:16] LABS: BASOPHIL % 0.6 %; EOSINOPHIL # 0.3 K/uL (0.0-0.5); EOSINOPHIL % 3.7 %; HEMOGLOBIN 13.5 g/dL (11.0-16.0); IMMATURE GRANULOCYTE % 0.4 %; LYMPHOCYTE # 1.4 K/uL (0.8-4.0); LYMPHOCYTE % 20.5 %; MCH 32.1 pg (27.0-34.0); MCHC 33.8 gm/dL (32.0-36.5); MCV 95.2 fl (83.0-98.0); MONOCYTE # 0.6 K/uL (0.0-1.0); MONOCYTE % 9.4 %; MPV 10.1 fl (9.4-12.4); NEUTROPHIL # (ANC) 4.4 K/uL (1.4-9.0); NEUTROPHIL % 65.4 %; NRBC % 0 /100WBC (0-0.00); PLATELET COUNT 155 K/uL (150-450); WBC 6.7 K/uL (4.0-11.0)
[2016-12-03 04:34] LABS: ALBUMIN 2.7 gm/dL (3.5-5.0); ANION GAP 12.1 (10.0-19.0); BLOOD UREA NITROGEN 37 mg/dL (6-24); CALCIUM 8.7 mg/dL (8.5-10.5); CHLORIDE 107 mMol/L (96-110); CO2 28 mMol/L (22-32); CREATININE 1.1 mg/dL (0.6-1.3); ESTIMATED GFR (MDRD EQUATION) > 60; MAGNESIUM 2.3 mg/dL (1.8-2.6); PHOSPHORUS 3.4 mg/dL (2.5-4.9); POTASSIUM 4.1 mMol/L (3.7-5.1); SODIUM 143 mMol/L (135-145)
== END 2016-12-03 14:11 | DRG 64 ==
LOC: GMED 12:05 → GNTU 15:02 → GPCU 11-18 15:34 → GNTU 11-23 06:58
PROVIDERS: Family Medicine; Hospitalist; Internal Medicine; ADMIT Neurological Surgery
PROC: 0DH63UZ Insertion of Feeding Device into Stomach, Percutaneous Approach (ICD-10-PCS; principal; 2016-11-23)
DX: I61.8 Other nontraumatic intracerebral hemorrhage (principal); G93.5 Compression of brain; J96.01 Acute respiratory failure with hypoxia; J69.0 Pneumonitis due to inhalation of food and vomit; G93.40 Encephalopathy, unspecified; E87.0 Hyperosmolality and hypernatremia; J81.0 Acute pulmonary edema; R13.10 Dysphagia, unspecified; G81.94 Hemiplegia, unspecified affecting left nondominant side; Z68.41 Body mass index [BMI] 40.0-44.9, adult; R41.4 Neurologic neglect syndrome; I61.5 Nontraumatic intracerebral hemorrhage, intraventricular; I48.91 Unspecified atrial fibrillation; Z79.01 Long term (current) use of anticoagulants; I25.10 Atherosclerotic heart disease of native coronary artery without angina pectoris; Z95.5 Presence of coronary angioplasty implant and graft; G47.33 Obstructive sleep apnea (adult) (pediatric); I10 Essential (primary) hypertension; N40.0 Benign prostatic hyperplasia without lower urinary tract symptoms; R31.0 Gross hematuria; R05 Cough; E66.01 Morbid (severe) obesity due to excess calories; E87.6 Hypokalemia; K59.00 Constipation, unspecified; R07.9 Chest pain, unspecified; H61.21 Impacted cerumen, right ear; Z66 Do not resuscitate; Z78.1 Physical restraint status; Z96.651 Presence of right artificial knee joint
CPT/HCPCS: A9270; C1751; C9113; C9132; J0360; J1940; J1956; J2270; J2543; J2765; J2920; J3370; J7030; J7040; J7050; J7060; J7512; J7612; P9045

== ENCOUNTER → 2016-11-08 | Outpatient (CLI) | payer MEDICARE, OTHER ==
[~2016-11-08] MED LIST: BIOFREEZE89 ML TOP; COQ-10100 MG PO; COZAAR100 MG PO; FISH OIL 1,2001 EAC3 PO; TINACTIN TOP; TOPROL XL25 MG PO; TOVIAZ4 MG PO; VISINE DPS)(GEN15 ML OPHTH; XARELTO20 MG PO
== END | disposition disaster alternative care site (69) ==
LOC: GAMB 11:52
DX: I63.9 Cerebral infarction, unspecified (principal); R29.810 Facial weakness
CPT/HCPCS: A0425; A0427